=== PATIENT | female | born 1970 | race African-American/Black ===

== ENCOUNTER 2020-03-28 17:13 | Emergency (ER) | payer OTHER, SELFPAY ==
--- NOTE | ~2020-03-28 | XR_ITS ---
EXAMINATION: XR chest 2V 03/28/2020 17:59 INDICATION: Right-sided chest pain and shortness of breath PROCEDURE: 2 view chest COMPARISON: No prior studies for comparison. FINDINGS: The lungs are clear. The cardiomediastinal silhouette is within normal limits. There are no pleural effusions. There is no pneumothorax suspected. IMPRESSION: 1: NO ACUTE CARDIOPULMONARY DISEASE. Reviewed, dictated and finalized at location A.
--- NOTE | ~2020-03-28 | CT_ITS ---
EXAMINATION: CTA chest PE protocol DATE: 03/28/2020 21:22 CDT INDICATION: Right-sided chest pain. Elevated d-dimer. TECHNIQUE: Computed tomographic angiography (CTA) of the chest was performed with 100 mL Omnipaque-35 0 intravenous contrast. The dose-length product was 201.75 mGy-cm. Maximum intensity projection 3D-re constructions of the aorta and other arteries were constructed by the technologist on a separate work station. Automated exposure control and iterative reconstruction technique were employed. COMPARISON: Chest dated 03/28/2020 FINDINGS: The study is technically adequate without evidence for pulmonary embolism. Heart size rajesh l. No significant pleural or pericardial effusion. No thoracic lymphadenopathy. No evidence for aorti c aneurysm or dissection. No significant pleural or pericardial effusion. No endobronchial lesions. N o pneumothorax. No suspicious pulmonary nodules or masses. No acute osseous abnormality. IMPRESSION: 1. No acute cardiopulmonary disease. No evidence for pulmonary embolism. Reviewed, dictated and finalized at location A.
--- NOTE | 2020-03-28 17:15 | ECG_ITS ---
Measurements Intervals [place] Rate: 62 P: 38 IN: 170 QRS: 5 QRSD: 80 T: 61 QT: 430 QTc: 440 Interpretive Statements SINUS RHYTHM NORMAL ECG Electronically Signed On 03-28-2020 19:25:58 CDT by Carlos Montiel D.O.
[2020-03-28 17:23] VITALS: BP 121/91; PULSE 66; RESP 17; TEMP 36.4; O2SAT 100
[2020-03-28 17:27] VITALS: PULSE 67; O2SAT 100
[2020-03-28 17:35] LABS: Basophils Percent Auto 0.6 % (0.2-1.2); Eosinophils Absolute Auto 0.2 K/mm3 (0-0.3); Hematocrit 34.9 % (37.0-47.0); Hemoglobin 12.4 g/dL (12.0-15.0); Immature Granulocyte Absolute 0.01 K/mm3 (0.00-0.031); Immature Granulocyte Percent A 0.2 % (0-0.5); Lymphocytes Absolute Auto 3.01 K/mm3 (0.9-3.2); Mean Corpuscular HGB Conc 35.5 g/dl (32-36); Mean Corpuscular Hemoglobin 33.5 pg (26-34); Mean Corpuscular Volume 94.3 fl (80-100); Mean Platelet Volume 9.7 fl (7.4-10.4); Monocytes Absolute Auto 0.4 K/mm3 (0.1-0.6); Monocytes Percent Auto 8.6 % (2.6-8.5); Neutrophils Absolute Auto 1.4 K/mm3 (1.3-6.7); Neutrophils Percent Auto 27.6 % (45.5-73.1); Platelet Count Result 228 k/mm3 (150-375); Red Cell Distribution Width 12.1 % (11.5-14.5)
[2020-03-28 17:44] LABS: INR 1.1; Prothrombin Time 13.4 Seconds (11.1-14.7)
[2020-03-28 17:45] LABS: Partial Thromboplastin Time 30.8 SECONDS (22.3-36.8)
[2020-03-28 17:51] LABS: Anion Gap 8.9 mmol/L (7-16); Blood Urea Nitrogen 16 mg/dL (7-17); Calcium 9.1 mg/dL (8.4-10.2); Carbon Dioxide 27 mmol/L (22-30); Chloride 108 mmol/L (98-107); Estimated CRCL calculation 51 ml/min; Estimated Glomerular Filt Rate > 60; Glucose 125 mg/dL (65-105); Potassium 3.9 mmol/L (3.4-5.0); Sodium 140 mmol/L (137-145)
[2020-03-28 18:03] LABS: Troponin I < 0.012 ng/mL (0.000-0.034)
[2020-03-28] MEDS: ASPIRIN 81 MG CHEWABLE TABLET 324 MG PO (18:47)
[2020-03-28 18:48] VITALS: BP 112/73; PULSE 76; RESP 19; TEMP 37.1; O2SAT 100
--- NOTE | 2020-03-28 19:44 | PC.NURSE ---
Called lab to add on D- Dimer at 194
--- NOTE | 2020-03-28 19:47 | ED.CHESTPAIN ---
HPI - Chest Pain General Chief Complaint: Chest Pain Stated Complaint: chest pain Time Seen by Provider: 03/28/20 19:03 Source: patient Mode of arrival: ambulatory Limitations: no limitations History of Present Illness HPI narrative: This patient is a 49 year old female who presents for evaluation of right chest pain . She reports intermittent sharp right chest pain that will radiate to her right arm. This pain is worse with movement of her right arm. She has been taking aleve and advil for her pain with some relief. She denies cough, fever, nausea, vomiting or dizziness. She reports some sob. She denies history of DVT, PE or lower extremity pain or swelling. MD complaint: chest pain Pain scale (0-10): 5 Related Data Allergies Allergy/AdvReac Type Severity Reaction Status Date / Time No Known Allergies Allergy Verified 03/28/20 17:30 Review of Systems Review of Systems: All systems reviewed & are unremarkable except as noted in HPI and below Constitutional: Constitutional: Denies chills and Denies fever(s) ENT: Denies nasal congestion Cardiovascular: Cardiovascular: Reports chest pain, Reports radiating jaw, neck or arm pain and Denies slow heart rate Respiratory: Respiratory: Denies chest congestion, Denies cough, Reports dyspnea and Denies wheezing Gastrointestinal: Gastrointestinal: Denies abdominal pain, Denies diarrhea, Denies nausea and Denies vomiting Neurologic: Denies dizziness [facility] Past Medical History Medical History (Updated 03/29/20 @ 00:01 by Nely Cruz) Sickle cell trait Surgical History Surgical History (Updated 03/28/20 @ 19:48 by Elodia Beard MD) No significant past surgical history Social History Social History (Updated 03/28/20 @ 19:48 by Elodia Beard MD) Smoking packs per day: 1 Smoking cigarettes per day: 20.0 Smoking status: Current every day smoker Alcohol intake: current Alcohol use details: occasional Substance use: never Exam Narrative: Exam Narrative: GENERAL: Well-appearing, thin, and in no acute distress. HEAD: Normocephalic, atraumatic EYES: PERRLA and EOMI, THROAT:Mucous membranes moist, Oropharynx normal without erythema, exudate, peritonsillar swelling or fluctuance NECK: Supple, without lymphadenopathy or mass RESPIRATORY: No respiratory distress, Airway patent, Respirations non-labored, Clear to auscultation without rales, rhonchi or wheeze; reproducible right costochondral junction HEART: Regular rate and rhythm. No murmur heard. Normal peripheral pulses. ABDOMEN: Soft, nontender, nondistended, normal active bowel sounds. No masses. No rebound or guarding, No organomegaly. EXTREMITIES: No edema, normal strength with full range of motion. SKIN: Warm, dry, normal color without rash NEURO: Alert and oriented x3. CN 2-12 grossly intact. No focal deficits. PSYCH: Normal mood and affect. Course Reevaluation(s) Reevaluation #1: PAtient evaluation has been unremarkable. This pain is likely costochondritis. Date: 03/28/20 Time: 21:46 Vital Signs Vital signs: Vital Signs Temperature 97.5 F L 03/28/20 17:23 Pulse Rate 66 03/28/20 17:23 Respiratory Rate 17 03/28/20 17:23 Blood Pressure 121/91 H 03/28/20 17:23 Pulse Oximetry 100 03/28/20 17:23 Temperature 98.1 F 03/28/20 22:15 Pulse Rate 63 03/28/20 22:15 Respiratory Rate 16 03/28/20 22:15 Blood Pressure 114/71 03/28/20 22:15 Pulse Oximetry 100 03/28/20 22:15 MDM - Chest Pain Lab Data Attestation: I reviewed the patient's lab results. Result diagrams: 03/28/20 17:29 03/28/20 17:29 Labs: Lab Results 03/28/20 03/28/20 03/28/20 Range/Units 17:29 17:29 17:29 WBC 5.0 (4.5-10.0) K/mm3 RBC 3.70 L (4.2-5.4) M/mm3 Hgb 12.4 (12.0-15.0) g/dL Hct 34.9 L (37.0-47.0) % MCV 94.3 (80-100) fl MCH 33.5 (26-34) pg MCHC 35.5 (32-36) g/dl RDW 12.1 (11.5-14.5) %
[2020-03-28 19:49] VITALS: BP 116/72; PULSE 57; RESP 17; TEMP 36.9; O2SAT 100
[2020-03-28 19:57] LABS: D Dimer 0.59 ug/mL (<0.48)
[2020-03-28 20:47] LABS: Troponin I < 0.012 ng/mL (0.000-0.034)
[2020-03-28 21:00] VITALS: BP 119/72; PULSE 68; RESP 19; TEMP 36.6; O2SAT 100
[2020-03-28 22:15] VITALS: BP 114/71; PULSE 63; RESP 16; TEMP 36.7; O2SAT 100
== END 2020-03-28 22:26 | disposition home or self-care (01) ==
PROVIDERS: Emergency Medicine; Emergency Provider General Practice
DX: M94.0 Chondrocostal junction syndrome [Tietze] (principal); R07.89 Other chest pain; D57.3 Sickle-cell trait; F17.210 Nicotine dependence, cigarettes, uncomplicated
CPT/HCPCS: 36415; 71046; 71275; 80048; 84484; 85025; 85380; 85610; 85730; 93005; 99284; A9270; Q9967

== ENCOUNTER 2020-05-12 16:38 | Emergency (ER) | payer OTHER, SELFPAY ==
[2020-05-12 16:46] VITALS: BP 119/83; PULSE 80; RESP 16; TEMP 36.5; O2SAT 100
--- NOTE | 2020-05-12 19:24 | PC.NURSE ---
called pt to triage for repeat vital signs; no answer at this time.
--- NOTE | 2020-05-12 19:41 | PC.NURSE ---
pt called in [facility] to be brought to a room in the main ed;no answer. This was the second call for this pt.
== END 2020-05-12 19:41 | disposition left against medical advice (07) ==
DX: Z53.21 Procedure and treatment not carried out due to patient leaving prior to being seen by health care provider (principal)
CPT/HCPCS: 99199